=== PATIENT | female | born 1960 | race Two or more races ===

== ENCOUNTER 2020-06-13 08:59 | Day surgery (SDC) | payer OTHER ==
[~2020-06-13 08:59] MED LIST: IRBESARTAN75 MG PO; LEVOTHYROXINE25 MCG PO; METFORMIN HCL500 M3 PO; NABUMETONE500 MG PO; PERCOCET 5/3251 TAB PO; PROTONIX40 MG PO; ROSUVASTATIN CAL5 MG PO
[2020-06-13] MEDS ORDERED: IBU600 MG PO (13:21)
== END 2020-06-13 17:24 | disposition home or self-care (01) ==
LOC: CIR.AMB 08:59
PROVIDERS: ATTEND Obstetrics & Gynecology Gynecology
DX: N84.0 Polyp of corpus uteri (principal); Z20.828 Contact with and (suspected) exposure to other viral communicable diseases

== ENCOUNTER 2023-07-31 09:31 | Inpatient (IN) | payer OTHER ==
[~2023-07-31] VITALS: Ht 165.1 cm; Wt 119.7 kg
[~2023-07-31 09:31] MED LIST changes: +IBU600 MG PO
[2023-08-04] MEDS ORDERED: PROTONIX20 MG PO (15:00)
[2023-08-12 16:30] LABS: HEMATOCRIT 44.5 % (36.0-45.00); HEMOGLOBIN 14.8 g/dL (12.0-15.00); MEAN CELL VOLUME 83.6 fL (80.00-100.00); MEAN CORPUSCULAR HEMOGLOBIN 27.8 pg (27.00-32.0); MEAN CORPUSCULAR HGB CONC 33.2 g/dl (32.0-36.0); PLATELET COUNT 247 K/uL (150-450); RED BLOOD COUNT 5.32 M/uL (4.00-6.00); RED CELL DISTRIBUTION WIDTH 14.9 % (11.5-14.5)
[2023-08-13 11:05] LABS: HEMATOCRIT 42.3 % (36.0-45.00); HEMOGLOBIN 14.2 g/dL (12.0-15.00); MEAN CELL VOLUME 84.5 fL (80.00-100.00); MEAN CORPUSCULAR HEMOGLOBIN 28.4 pg (27.00-32.0); MEAN CORPUSCULAR HGB CONC 33.6 g/dl (32.0-36.0); PLATELET COUNT 271 K/uL (150-450); RED CELL DISTRIBUTION WIDTH 14.8 % (11.5-14.5)
[2023-08-14] MEDS ORDERED: TRAM1TAB98 PO (06:59)
== END 2023-08-14 10:11 | disposition home or self-care (01) | DRG 741 ==
LOC: SURG 08-05 11:45 → O/R 08-12 05:29 → OB/GYN 08-12 05:29
PROVIDERS: Internal Medicine Geriatric Medicine; ADMIT Obstetrics & Gynecology Gynecology; ATTEND Obstetrics & Gynecology Gynecology
PROC: 0UT70ZZ Resection of Bilateral Fallopian Tubes, Open Approach (ICD-10-PCS; 2023-08-12)
PROC: 0UT20ZZ Resection of Bilateral Ovaries, Open Approach (ICD-10-PCS; 2023-08-12)
PROC: 0USG0ZZ Reposition Vagina, Open Approach (ICD-10-PCS; 2023-08-12)
PROC: 0UT90ZZ Resection of Uterus, Open Approach (ICD-10-PCS; principal; 2023-08-12 16:00)
DX: C54.1 Malignant neoplasm of endometrium (principal); Z20.822 Contact with and (suspected) exposure to COVID-19; I11.9 Hypertensive heart disease without heart failure; E11.9 Type 2 diabetes mellitus without complications

== ENCOUNTER 2023-08-04 14:41 | Emergency (ER) | payer OTHER ==
[~2023-08-04] VITALS: Ht 165.1 cm; Wt 113.9 kg
[2023-08-04] MEDS ORDERED: PROTONIX20 MG PO (15:00)
[2023-08-04 17:20] LABS: HEMATOCRIT 43.8 % (36.0-45.00); HEMOGLOBIN 14.6 g/dL (12.0-15.00); MEAN CELL VOLUME 84.6 fL (80.00-100.00); MEAN CORPUSCULAR HEMOGLOBIN 28.3 pg (27.00-32.0); MEAN CORPUSCULAR HGB CONC 33.4 g/dl (32.0-36.0); PLATELET COUNT 268 K/uL (150-450); RED BLOOD COUNT 5.17 M/uL (4.00-6.00); RED CELL DISTRIBUTION WIDTH 14.8 % (11.5-14.5)
[2023-08-04 17:26] LABS: PH,URINE 5.5 (5.0-8.0); URINE APPEARANCE Clear; URINE BILIRRUBIN Negative (NEGATIVE); URINE BLOOD Small; URINE COLOR Yellow; URINE GLUCOSE Negative (NEGATIVE); URINE LEUKOCYTE Negative; URINE NITRATE Negative; URINE PROTEIN Negative (NEGATIVE)
[2023-08-04 17:27] LABS: URINE BACTERIA 25.1 uL (0.0-1933); URINE EPITHELIAL CELLS 4.6 uL (0.0-38.8); URINE RBC 92.6 uL (0.0-20.8); URINE WBC 17.4 uL (0.0-23.2)
[2023-08-04 17:51] LABS: ALBUMIN 3.5 gm/dL (3.4-5.0); BILIRUBIN TOTAL 0.35 mg/dL (0.3-1.2); CALCIUM 9.2 mg/dL (8.5-10.1); CREATININE SERUM 0.92 mg/dL (0.55-1.02); GFR 62.27; POTASSIUM 3.71 mEq/L (3.5-5.1); TOTAL PROTEIN 7.5 gm/dL (6.4-8.2)
== END 2023-08-04 18:33 | disposition home or self-care (01) ==
LOC: ER 14:41
PROVIDERS: General Practice
DX: T61.11XA Scombroid fish poisoning, accidental (unintentional), initial encounter (principal); Z20.822 Contact with and (suspected) exposure to COVID-19

== ENCOUNTER 2023-08-08 10:44 | Outpatient (CLI) | payer OTHER ==
[~2023-08-08 10:44] MED LIST changes: +PROTONIX20 MG PO
== END 2023-08-08 10:46 | disposition home or self-care (01) ==
LOC: LAB 10:44
PROVIDERS: ATTEND Obstetrics & Gynecology Gynecology
DX: Z20.822 Contact with and (suspected) exposure to COVID-19 (principal)